=== PATIENT | female | born 1950 | race Caucasian/White ===

== ENCOUNTER 2018-06-30 19:21 | Emergency (ER) | payer MEDICAID | END 2018-06-30 22:12 | disposition home or self-care (01) | LOC: FTE 19:21 | DX: S50.862A Insect bite (nonvenomous) of left forearm, initial encounter (principal); S80.862A Insect bite (nonvenomous), left lower leg, initial encounter; I10 Essential (primary) hypertension; W57.XXXA Bitten or stung by nonvenomous insect and other nonvenomous arthropods, initial encounter; Y92.9 Unspecified place or not applicable | CPT/HCPCS: 99283 ==